=== PATIENT | female | born 1980 | race African-American/Black ===

== ENCOUNTER 2017-10-31 12:47 | Emergency (ER) | payer OTHER ==
[~2017-10-31] VITALS: Ht 160 cm; Wt 74.8 kg
[2017-10-31] MEDS ORDERED: SODIUM CHLORIDE 0.9% 1000ML 1,000 ML IV STA (13:35)
[2017-10-31] MEDS ORDERED: MORPHINE SULFATE INJ 4 MG/ML INJ IV STA (13:35)
[2017-10-31] MEDS ORDERED: ONDANSETRON HCL INJ 2 MG/ML VIAL IV STA (13:35)
[2017-10-31] MEDS ORDERED: DIATRIZOATE MEGL/DIATRIZOA SOD 30 ML BTL PO ONE (13:39)
[2017-10-31 14:15] LABS: CLARITY,URINE HAZY (CLEAR); COLOR,URINE YELLOW (YELLOW)
[2017-10-31 14:16] LABS: BILIRUBIN,URINE NEGATIVE (NEGATIVE); KETONES,URINE 1+ (NEGATIVE); LEUKOCYTE ESTERASE ,URINE TRACE (NEGATIVE); NITRITE,URINE NEGATIVE (NEGATIVE); PROTEIN,URINE DIPSTICK NEGATIVE (NEGATIVE); URINE UROBILINOGEN 1 mg/dL (0.2 - 1)
[2017-10-31 14:24] LABS: EPITHELIAL CELLS,URINE MANY /LPF
[2017-10-31 14:26] LABS: BACTERIA,URINE FEW /HPF; RBC,URINE 0-5 /HPF (0-5)
[2017-10-31 14:29] LABS: BASOPHILS % 0.5 % (0.0-1.0); EOSINOPHILS # (AUTO) 0.1 (0.0-0.4); EOSINOPHILS % 1.3 % (0.0-6.0); HEMATOCRIT 33.1 % (34.2-44.1); HEMOGLOBIN 11.2 g/dL (12.0-16.0); LYMPHOCYTES # (AUTO) 3.5 (1.0-3.2); LYMPHOCYTES % 46.5 % (18.0-39.1); MEAN CORPUSCULAR HEMOGLOBIN 32.3 pg (28-32); MEAN CORPUSCULAR HGB CONC 33.8 g/dL (31-35); MEAN CORPUSCULAR VOLUME 95.4 fL (81-99); MONOCYTES # (AUTO) 0.6 (0.2-0.8); NEUTROPHILS # (AUTO) 3.3 (2.1-6.9); NEUTROPHILS % 43.6 % (38.7-80.0); PLATELET COUNT 323 x10e3/uL (140-360); RED BLOOD COUNT 3.47 x10e6/uL (3.6-5.1); RED CELL DISTRIBUTION WIDTH 11.6 % (11.7-14.4)
[2017-10-31 14:49] LABS: ALANINE AMINOTRANSFERASE 11 IU/L (0-55); ALBUMIN 3.4 g/dL (3.5-5.0); ALBUMIN/GLOBULIN RATIO 1.1 (0.8-2.0); ALKALINE PHOSPHATASE 82 IU/L (40-150); AMYLASE 57 U/L (25-125); ANION GAP 10.6 mmol/L (8-16); BLOOD UREA NITROGEN 8 mg/dL (7-26); BUN/CREATININE RATIO 12 (6-25); CALCIUM 9.1 mg/dL (8.4-10.2); CARBON DIOXIDE 28 mmol/L (22-29); CHLORIDE 103 mmol/L (98-107); CREATINE KINASE 59 IU/L (29-168); CREATININE, SERUM 0.69 mg/dL (0.57-1.11); EST GLOMERULAR FILTRATION RATE > 60 ML/MIN (60-); GLUCOSE 93 mg/dL (74-118); LIPASE 10 U/L (8-78); POTASSIUM 3.6 mmol/L (3.5-5.1); SODIUM 138 mmol/L (136-145)
--- NOTE | 2017-10-31 15:51 | Diagnostic Imaging Report ---
PROCEDURE: Frontal and lateral views of the chest. COMPARISON: None. INDICATIONS: LEFT SIDED ABDOMINAL PAIN, VOMITING X 4 DAYS FINDINGS: Lines/tubes: None. Lungs: The lungs are well inflated and clear. There is no evidence of pneumonia or pulmonary edema. Pleura: There is no pleural effusion or pneumothorax. Heart and mediastinum: The heart and the mediastinum are normal. Bones: No acute bony abnormality. IMPRESSION: 1. No acute cardiopulmonary disease. Dictated by: Dell Mauro M.D. on 10/31/2017 at 15:55 Electronically approved by: Dell Mauro M.D. on 10/31/2017 at 15:56
--- NOTE | 2017-10-31 16:06 | Diagnostic Imaging Report ---
PROCEDURE: CT ABDOMEN AND PELVIS WITH CONTRAST TECHNIQUE: The abdomen and pelvis were scanned utilizing a multidetector helical scanner from the diaphragm to the lesser trochanter after the IV administration of 100 cc of Isovue 370 and the oral administration of Gastroview/water. Coronal and sagittal multiplanar reformations were obtained. COMPARISON: None. INDICATIONS: LEFT ABDOMINAL PAIN WITH NAUSEA X 4 DAYS FINDINGS: LOWER THORAX: Normal. HEPATOBILIARY: No focal hepatic lesions. No biliary ductal dilatation. SPLEEN: No splenomegaly. PANCREAS: No focal masses or ductal dilatation. ADRENALS: No adrenal nodules. KIDNEYS/URETERS: No hydronephrosis, stones, or solid mass lesions. PELVIC ORGANS/BLADDER: Unremarkable. A 2.2 cm cystic lesion in the right adnexa series 2, image 64) is likely a physiologic ovarian cyst. PERITONEUM / RETROPERITONEUM: No free air or fluid. LYMPH NODES: No lymphadenopathy. VESSELS: Unremarkable. GI TRACT: No distention or wall thickening. Post surgical changes of the greater curvature of the stomach. BONES AND SOFT TISSUES: Unremarkable. IMPRESSION: No acute abnormality. No specific findings to explain the patient's symptoms. Dictated by: Dell Mauro M.D. on 10/31/2017 at 16:10 Electronically approved by: Dell Mauro M.D. on 10/31/2017 at 16:10
[2017-10-31 17:12] VITALS: BP 123/73
[2017-10-31] MEDS ORDERED: IOPAMIDOL 370 MG/ML 200 ML INFUS..BTL INJ ONE (20:38)
[2017-10-31] MEDS ORDERED: SODIUM CHLORIDE 0.9% 50ML 50 ML ONE (20:38)
== END 2017-10-31 17:08 | disposition home or self-care (01) ==
LOC: ER 12:47
DX: R10.12 Left upper quadrant pain (principal); R11.2 Nausea with vomiting, unspecified; K52.9 Noninfective gastroenteritis and colitis, unspecified; N30.90 Cystitis, unspecified without hematuria
CPT/HCPCS: 36415; 71046; 74177; 80053; 81001; 81025; 82150; 82550; 82553; 83690; 84484; 85025; 93005; 99284; J2270; J2405; J7030; Q9967

== ENCOUNTER 2018-08-09 05:36 | Emergency (ER) | payer OTHER ==
[~2018-08-09] VITALS: Ht 160 cm; Wt 74.8 kg
--- OUTSIDE RECORDS SUMMARY | 2018-08-09 05:39 | XMS REPORT | Continuity of Care Document ---
Author Author [facility] Address Unknown Phone Unavailable Problems Problem Status Onset Date Classification Date Reported Comments Source BMI 30.0-30.9,adult Active Diagnosis 10/21/2017 [facility] Obesity Active Diagnosis 10/21/2017 [facility] Amenorrhea Active Problem 10/21/2017 [facility] Non-intractable cyclical vomiting with nausea Active Diagnosis 10/21/2017 [facility] Diarrhea, unspecified type Active Diagnosis 10/21/2017 [facility] Left upper quadrant pain Active Diagnosis 10/21/2017 [facility] Medications Medication Details Route Status Patient Instructions Ordering Provider Order Date Source Ondansetron HCl 1 tablet Orally Active 4 mg Orally three times a day (tid) as needed (prn) Rolly 10/20/2017 [facility] Allergies, Adverse Reactions, Alerts Substance Category Reaction Severity Reaction type Status Date Reported Comments Source N.K.D.A. Adverse Reaction Info Not Available Adverse Reaction Active 10/20/2017 [facility] Immunizations Immunization Date Given Site Status Last Updated Comments Source Results Order Name Results Value Reference Range Date Interpretation Comments Source Vital Signs Vital Sign Value Date Comments Source Weight 175.3 10/20/2017 [facility] Height 64 10/20/2017 [facility] Temperature Oral (F) 98.4 F 10/20/2017 [facility] Heart Rate 62 10/20/2017 [facility] Diastolic (mm Hg) 77 10/20/2017 [facility] Systolic (mm Hg) 116 10/20/2017 [facility] Encounters Location Location Details Encounter Type Encounter Number Reason For Visit Attending Provider ADM Date DC Date Status Source Procedures Procedure Code Date Perfomer Comments Source
--- OUTSIDE RECORDS SUMMARY | 2018-08-09 05:39 | XMS REPORT | Clinical Summary ---
Author Author [facility] Organization [facility] Address Unknown Phone Unavailable Care Team Providers Care Manager College Name Role Phone Ashley Mcneil MD PCP Allergies Not on File Medications Not on file Active Problems Not on file Social History Date Tobacco Use Types Packs/Day Years Used Never Assessed Sex Assigned at Date Recorded Not on file Industry Job Start Date Occupation Not on file Not on file Not on file Travel End Travel History Travel Start No recent travel history available. Last Filed Vital Signs Not on file Plan of Treatment Not on file Results Not on fileafter 08/08/2017 Insurance Payer Benefit Subscriber ID Type Phone Address Plan / Group [facility] xxxxxxxxx HMO/PPO THCARE CHOICE/CHO ICE + Advance Directives Patient has advance care planning documents on file. For more information, eddie e contact: Abdulkadir Tolbert [address] [place] [address]
--- OUTSIDE RECORDS SUMMARY | 2018-08-09 05:39 | XMS REPORT ---
[facility] Address Unknown Phone Unavailable Care Team Providers Care Textile Worker Name Role Phone Flakito PADRON Unavailable Unavailable Problems This patient has no known problems. Allergies, Adverse Reactions, Alerts This patient has no known allergies or adverse reactions. Medications This patient has no known medications. Results Test Description Test Time Test Comments Text Results Atomic Results Result Comments CT ABDOMEN/PELVIS W 2017-10-31 16:10:00 [place] [address] Patient Name: GIOVANNI WHITMAN MR #: [id number] : 1980 Age/Sex: 37/F Req #: [id number] Adm Physician: Ordered by: SAM HOLLIS NP Report #: [id number] Location: ER Room/Bed: Procedure: [id number] CT/CT ABDOMEN/PELVIS W Exam Date: 10/31/17 Exam Time: 1520 REPORT STATUS: Signed PROCEDURE: CT ABDOMEN AND PELVIS WITH CONTRAST TECHNIQUE: The abdomen and pelvis were scanned utilizing a multidetector helical scanner from the diaphragm to the lesser trochanter after the IV administration of 100 cc of Isovue 370 and the oral administration of Gastroview/water. Coronal and sagittal multiplanar reformations were obtained. COMPARISON: None. INDICATIONS: LEFT ABDOMINAL PAIN WITH NAUSEA X 4 DAYS FINDINGS: LOWER THORAX: Normal. HEPATOBILIARY: No focal hepatic lesions. No biliary ductal dilatation. SPLEEN: No splenomegaly. PANCREAS: No focal masses or ductal dilatation. ADRENALS: No adrenal nodules. KIDNEYS/URETERS: No hydronephrosis, stones, or solid mass lesions. PELVIC ORGANS/BLADDER: Unremarkable. A 2.2 cm cystic lesion in the right adnexa series 2, image 64) is likely a physiologic ovarian cyst. PERITONEUM / RETROPERITONEUM: No free air or fluid. LYMPH NODES: No lymphadenopathy. VESSELS: Unremarkable. GI TRACT: No distention or wall thickening. Post surgical changes of the greater curvature of the stomach. BONES AND SOFT TISSUES: Unremarkable. IMPRESSION: No acute abnormality. No specific findings to explain the patient's symptoms. Dictated by: Maddie Mauro M.D. on 10/31/2017 at 16:10 Electronically approved by: Maddie Mauro M.D. on 10/31/2017 at 16:10 Dictated By: MADDIE MAURO MD [id number] Transcribed By: DANNA on 10/31/17 1610 COPY TO: SAM HOLLIS NP CHEST 2 VIEWS 2017-10-31 15:56:00 [place] [address] Patient Name: GIOVANNI WHITMAN MR #: [id number] : 1980 Age/Sex: 37/F Req #: [id number] Adm Physician: Ordered by: SAM HOLLIS NP Report #: [id number] Location: ER Room/Bed: Procedure: [id number] DX/CHEST 2 VIEWS Exam Date: 10/31/17 Exam Time: 1532 REPORT STATUS: Signed PROCEDURE: Frontal and lateral views of the chest. COMPARISON: None. INDICATIONS: LEFT SIDED ABDOMINAL PAIN, VOMITING X 4 DAYS FINDINGS: Lines/tubes: None. Lungs: The lungs are well inflated and clear. There is no evidence of pneumonia or pulmonary edema. Pleura: There is no pleural effusion or pneumothorax. Heart and mediastinum: The heart and the mediastinum are normal. Bones: No acute bony abnormality. IMPRESSION: 1. No acute cardiopulmonary disease. Dictated by: Maddie Mauro M.D. on 10/31/2017 at 15:55 Electronically approved by: Maddie Mauro M.D. on 10/31/2017 at 15:56 Dictated By: MADDIE MAURO MD [id number] Transcribed By: DANNA on 10/31/17 5631 COPY TO: SMA HOLLIS NP
[2018-08-09] MEDS ORDERED: KETOROLAC TROMETHAMINE 30 MG/ML VIAL IV STA (05:45)
[2018-08-09 06:23] LABS: BASOPHILS % 0.4 % (0.0-1.0); EOSINOPHILS # (AUTO) 0.3 (0.0-0.4); EOSINOPHILS % 3.1 % (0.0-6.0); HEMATOCRIT 37.6 % (34.2-44.1); HEMOGLOBIN 12.3 g/dL (12.0-16.0); LYMPHOCYTES # (AUTO) 3.5 (1.0-3.2); MEAN CORPUSCULAR HEMOGLOBIN 31.8 pg (28-32); MEAN CORPUSCULAR HGB CONC 32.7 g/dL (31-35); MEAN CORPUSCULAR VOLUME 97.2 fL (81-99); MONOCYTES # (AUTO) 0.8 (0.2-0.8); MONOCYTES % 8.3 % (4.4-11.3); NEUTROPHILS # (AUTO) 4.8 (2.1-6.9); PLATELET COUNT 434 x10e3/uL (140-360); RED BLOOD COUNT 3.87 x10e6/uL (3.6-5.1); RED CELL DISTRIBUTION WIDTH 11.8 % (11.7-14.4)
[2018-08-09 06:32] LABS: CLARITY,URINE CLEAR (CLEAR); COLOR,URINE YELLOW (YELLOW); LEUKOCYTE ESTERASE ,URINE 2+ (NEGATIVE); NITRITE,URINE NEGATIVE (NEGATIVE)
[2018-08-09 06:33] LABS: BILIRUBIN,URINE NEGATIVE (NEGATIVE); KETONES,URINE NEGATIVE (NEGATIVE); PREGNANCY TEST, URINE NEGATIVE (NEGATIVE); PROTEIN,URINE DIPSTICK TRACE (NEGATIVE); URINE UROBILINOGEN 0.2 mg/dL (0.2 - 1)
--- NOTE | 2018-08-09 06:34 | Diagnostic Imaging Report ---
EXAMINATION: CHEST 2 VIEWS INDICATION: Right pleuritic chest pain COMPARISON: 10/31/2017. FINDINGS: TUBES and LINES: None. LUNGS: Lungs are well inflated. Minimal bilateral perihilar, peribronchial thickening. There is no evidence of pneumonia or pulmonary edema. PLEURA: No pleural effusion or pneumothorax. HEART AND MEDIASTINUM: The cardiomediastinal silhouette is unremarkable. BONES AND SOFT TISSUES: No acute osseous lesion. Soft tissues are unremarkable. UPPER ABDOMEN: No free air under the diaphragm. IMPRESSION: Minimal bilateral perihilar, peribronchial thickening. No focal consolidation. Signed by: Dr. Becca Lopez M.D. on 08/09/2018 6:31 AM
[2018-08-09 06:41] LABS: ALANINE AMINOTRANSFERASE 11 IU/L (0-55); ALBUMIN 3.3 g/dL (3.5-5.0); ALBUMIN/GLOBULIN RATIO 0.7 (0.8-2.0); ALKALINE PHOSPHATASE 95 IU/L (40-150); ANION GAP 13.7 mmol/L (8-16); BLOOD UREA NITROGEN 7 mg/dL (7-26); BUN/CREATININE RATIO 10 (6-25); CALCIUM 9.6 mg/dL (8.4-10.2); CARBON DIOXIDE 27 mmol/L (22-29); CHLORIDE 104 mmol/L (98-107); EST GLOMERULAR FILTRATION RATE > 60 ML/MIN (60-); GLUCOSE 85 mg/dL (74-118); POTASSIUM 3.7 mmol/L (3.5-5.1); SODIUM 141 mmol/L (136-145)
[2018-08-09 06:44] LABS: WBC,URINE (MAN) >50 /HPF (0-5)
[2018-08-09 06:45] LABS: BACTERIA,URINE MANY /HPF; EPITHELIAL CELLS,URINE MODERATE /LPF
--- NOTE | 2018-08-09 06:55 | NUR ---
received report from off going nurse. patient in room in bed. awake and alert. received iv pain meds from off going nurse. pending CT scan of chest.
[2018-08-09] MEDS ORDERED: SODIUM CHLORIDE 0.9% 50ML 0 ML ONE (07:06)
[2018-08-09] MEDS ORDERED: IOPAMIDOL 370 MG/ML 200 ML INFUS..BTL INJ ONE ×2 (07:07→18:10)
--- NOTE | 2018-08-09 07:41 | Diagnostic Imaging Report ---
EXAMINATION: CT of the chest with contrast, PE protocol. TECHNIQUE: Spiral CT images of the chest were performed from the lung apices through the level of the adrenal glands after the IV administration of 100 cc of Isovue 370. Thin section reconstructions were obtained with special concentration on the pulmonary arteries. Coronal and sagittal reformatted images were performed. COMPARISON: Chest 2 views 08/09/2018 CLINICAL HISTORY:Shortness of breath for 2 days DISCUSSION: Lungs: No filling defects are identified in the main, right or left pulmonary arteries to their segmental and subsegmental levels, to suggest pulmonary embolism. No nodules, masses or consolidation. Airways: <The major airways are clear.> Pleura: <There is no evidence of pleural effusion or pneumothorax.> Heart and mediastinum: Thyroid is unremarkable. Heart size is normal. No pericardial effusion. Aorta is nonaneurysmal. Main pulmonary artery is normal in caliber. Lymph nodes: No mediastinal, hilar or axillary adenopathy. Abdomen: The visualized portions of the liver, spleen, pancreas, kidneys and adrenal glands are unremarkable. Bones and soft tissues: No acute bony abnormalities. Soft tissues are grossly unremarkable. IMPRESSION: 1. No CT evidence of pulmonary embolism. 2. Essentially clear lungs. Signed by: Dr. Raciel Cai M.D. on 08/09/2018 7:37 AM
[2018-08-09] MEDS ORDERED: SODIUM CHLORIDE 0.9% 50ML 50 ML ONE (18:10)
[2018-08-10] MEDS ORDERED: LIDOCAINE 5% PATCH TP SCH (09:00)
== END 2018-08-09 10:20 | disposition home or self-care (01) ==
LOC: ER 05:36
DX: R07.89 Other chest pain (principal); Z98.84 Bariatric surgery status
CPT/HCPCS: 36415; 71046; 71260; 80053; 81001; 81025; 85025; 85379; 99284; J1885; Q9967

== ENCOUNTER 2019-01-09 07:17 | Emergency (ER) | payer OTHER ==
[~2019-01-09] VITALS: Ht 160 cm; Wt 74.8 kg
--- OUTSIDE RECORDS SUMMARY | 2019-01-09 07:20 | XMS REPORT | Clinical Summary ---
Author Author [facility] Address Unknown Phone Unavailable Care Team Providers Care Continuous Improvement Engineer Name Role Phone Ashley Mcneil MD PCP [...] Not on file Results Not on fileafter 01/08/2018 Insurance Type Payer Benefit Subscriber ID Effective Phone Address Plan / Dates Group HMO/PPO [facility] xxxxxxxxx [id number] THCARE resent CHOICE/CHO ICE + Advance Directives For more information, please contact: [phone] Patient Asbestos Abatement Worker Explanation Type Date Recorded Advance Directives, Living Will and Medical Power of Mechanical Shop Laborer
--- OUTSIDE RECORDS SUMMARY | 2019-01-09 07:20 | XMS REPORT | Continuity of Care Document ---
Author Author [facility] Organization [facility] Address Unknown Phone Unavailable Care Team Providers Care Power Cleaner Operator Name Role Phone [employer] Unavailable Unavailable Problems Problem Status Onset Date Classification Date Reported Comments Source BMI 30.0-30.9,adult Active Diagnosis 10/21/2017 [facility] Primary Obesity (BMI 30-39.9) Active Diagnosis 10/21/2017 [facility] Primary Amenorrhea Active Problem 10/21/2017 [facility] Primary Non-intractable cyclical vomiting with nausea Active Diagnosis 10/21/2017 [facility] Primary Diarrhea, unspecified type Active Diagnosis 10/21/2017 [facility] Primary Left upper quadrant pain Active Diagnosis 10/21/2017 [facility] Medications Medication Details Route Status Patient Instructions Ordering Provider Order Date Source Ondansetron HCl 1 tablet Orally Active 4 mg Orally three times a day (tid) as needed (prn) Rolly 10/20/2017 [facility] Allergies, Adverse Reactions, Alerts Substance Category Reaction Severity Reaction type Status Date Reported Comments Source N.K.D.A. Adverse Reaction Info Not Available Adverse Reaction Active 10/20/2017 [facility] Immunizations No Data Provided for This Section Results No Data Provided for This Section Pathology Reports No Data Provided for This Section Diagnostic Reports No Data Provided for This Section Consultation Notes No Data Provided for This Section Discharge Summaries No Data Provided for This Section History and Physicals No Data Provided for This Section Vital Signs Vital Sign Value Date Comments Source Weight 175.3 10/20/2017 [facility] Height 64 10/20/2017 [facility] Temperature Oral (F) 98.4 F 10/20/2017 [facility] Heart Rate 62 10/20/2017 [facility] Primary Diastolic (mm Hg) 77 10/20/2017 [facility] Primary Systolic (mm Hg) 116 10/20/2017 [facility] Primary Encounters No Data Provided for This Section Procedures No Data Provided for This Section Assessment and Plan No Data Provided for This Section Plan of Care No Data Provided for This Section Social History No Data Provided for This Section Family History No Data Provided for This Section Advance Directives No Data Provided for This Section Functional Status No Data Provided for This Section
[2019-01-09] MEDS ORDERED: CEFTRIAXONE SOD 1 GM/NS 50 ML 50 ML IV ONE (08:15)
[2019-01-09 08:33] LABS: BILIRUBIN,URINE NEGATIVE (NEGATIVE); COLOR,URINE YELLOW (YELLOW); KETONES,URINE NEGATIVE (NEGATIVE); LEUKOCYTE ESTERASE ,URINE NEGATIVE (NEGATIVE); NITRITE,URINE NEGATIVE (NEGATIVE); PROTEIN,URINE DIPSTICK NEGATIVE (NEGATIVE); URINE UROBILINOGEN 0.2 mg/dL (0.2 - 1)
[2019-01-09 08:36] LABS: CLARITY,URINE HAZY (CLEAR)
[2019-01-09 08:41] LABS: BACTERIA,URINE FEW /HPF; EPITHELIAL CELLS,URINE FEW /LPF; RBC,URINE 21-50 /HPF (0-5); WBC,URINE (MAN) 0-5 /HPF (0-5)
[2019-01-09] MEDS ORDERED: CEFTRIAXONE SOD 1 GM VIAL IM NR (09:00)
[2019-01-09] MEDS ORDERED: LIDOCAINE HCL 1% 2 ML AMP ONE (09:05)
[2019-01-09] MEDS ORDERED: KETOROLAC TROMETHAMINE 30 MG/ML VIAL IV NR (09:15)
[2019-01-09] MEDS ORDERED: LIDOCAINE HCL 1% LOCAL INJ 20 ML VIAL INJ NR (09:15)
--- NOTE | 2019-01-09 10:52 | Diagnostic Imaging Report ---
EXAM: First Trimester Obstetric Pelvic Ultrasound INDICATION: threatened miscarriage COMPARISON: None TECHNIQUE: Grayscale transverse and sagittal transabdominal and transvaginal images were obtained of the pelvis. Transvaginal imaging was medically necessary to better evaluate the endometrium, adnexa, and fetus. CLINICAL HISTORY: 38 year old Last menstrual period: 11/25/2018 Clinical gestational age: 6 weeks 3 days FINDINGS: Uterus: Orientation: Normal Size: 8.6 x 5.2 x 4.6 cm, enlarged Mass: None Cervix: Normal Endometrium: No definite gestational sac identified. Mild heterogeneity of the endometrium. Endometrium measures 1 cm thick. Right ovary Size: 3.4 x 2.1 x 3.4 cm Mass/Cyst: None Normal vascular waveforms detected within the ovarian parenchyma.. Left ovary Size: 3.1 x 2.1 x 3.2 cm Mass/Cyst: A slightly hyperechoic 1.9 cm focus in the left ovary may represent a corpus luteum. Normal vascular waveforms detected within the ovarian parenchyma. Cul-de-sac: No free fluid IMPRESSION: 1. No definite gestational sac identified. 2. If patient has positive beta hCG, findings would be consistent with of unknown location, in which case obstetrics consultation and follow-up ultrasound in one week would be recommended. 3. Heterogeneous material within the endometrial cavity may represent blood. CLASSIFICATION Viable: can potentially result in a liveborn baby Visualized embryo with FHT Nonviable: Findings diagnostic of failure * Ectopic * CRL >= 7 mm and no FHT * MSD >= 25 mm and no embryo * No FHT >= 2 weeks after US showed GS w/o YS * No FHT >= 11 days after US showed GS w/ YS Intrauterine of uncertain viability: Intrauterine GS with no FHT and no definite findings of failure of unknown location: Positive urine or serum test and no IUP or ectopic on US Diagnostic Criteria for Nonviable Early in the First Trimester N Engl J Med 2013;369:1443-51. DOI: [id number] Signed by: Gerson Zamora DO on 01/09/2019 10:49 AM
--- NOTE | 2019-01-09 11:07 | NUR ---
DR. Milind BROOKS AT BEDSIDE UPDATING PATIENT ON HER ULTRASOUND RESULTS AND NEED FOR TRANSFER TO ANOTHER FACILITY WITH OBGYN. PATIENT VERYBALIZED UNDERSTANDING AND WILL AGREE TO TRANSFER
--- NOTE | 2019-01-09 11:14 | NUR ---
INITIATED TRANSFER TO [facility] FOR A HIGHER LEVEL OF CARE AND INFORMATION SYSTEMS SECURITY OFFICER SERVICES, SPOKE WITH BORIS.
--- NOTE | 2019-01-09 11:23 | NUR ---
RADIOLOGY NOTIFIED FOR DISC
--- NOTE | 2019-01-09 12:04 | NUR ---
SPOKE WITH BORIS FROM [facility], TRANSFER CENTER, STATES THAT THEY DO NOT HAVE PRORATION CLERK FIRE SERVICES PLUMBER TODAY. DECLINED TRANSFER.
[2019-01-09] MEDS ORDERED: ACETAMINOPHEN 325 MG TAB PO NR (12:15)
--- NOTE | 2019-01-09 12:30 | NUR ---
PER PATIENT, SHE WENT TO BATHROOM AND PASSED A CLOT. DR. BROOKS EVALUATED CLOT IN TOILET
--- NOTE | 2019-01-09 12:33 | NUR ---
PELVIC SET UP AT BEDSIDE
--- NOTE | 2019-01-09 12:41 | NUR ---
DR. BROOKS SPEAKING WITH OBGYN REGARDING PATIENT TRANSER
--- NOTE | 2019-01-09 13:40 | NUR ---
REPORT TO JACLYN Samayoa [phone]. PATIENT GOING DIRECTLY TO [facility]
== END 2019-01-09 14:54 | disposition short-term general hospital (02) ==
LOC: ER 07:17
DX: O00.00 Abdominal pregnancy without intrauterine pregnancy (principal)
CPT/HCPCS: 36415; 76817; 81001; 84702; 99284; J0696 ×2; J2001